=== PATIENT | female | born 1960 | race Caucasian/White ===

== ENCOUNTER 2016-08-24 14:23 | Emergency (ER) | payer OTHER ==
--- NOTE | 2016-08-24 14:26 | UC ---
Ear Complaint HPI - HPI Summary HPI Summary: 55 year old female presents with complains of ear bilateral ear pain - History of Current Complaint Stated Complaint: EAR PAIN Time Seen by Provider: 08/24/16 14:24 Hx Last Menstrual Period: 08/18/13 - Allergies/Home Medications Allergies/Adverse Reactions: Allergies Allergy/AdvReac Type Severity Reaction Status Date / Time No Known Allergies Allergy Verified 08/24/16 14:35 PMH/Surg Hx/FS Hx/Imm Hx - Surgical History Surgical History: Yes Surgery Procedure, Year, and Place: C-sect x2. tubal - Social History Alcohol Use: None Substance Use Type: None Smoking Status (MU): Never Smoked Tobacco Review of Systems Constitutional: Negative Skin: Negative Eyes: Negative ENT: Ear Ache Respiratory: Negative Cardiovascular: Negative Gastrointestinal: Negative Genitourinary: Negative Motor: Negative Neurovascular: Negative Musculoskeletal: Negative Neurological: Negative Psychological: Negative All Other Systems Reviewed And Are Negative: Yes Physical Exam Triage Information Reviewed: Yes Eye Exam: Normal ENT: Positive: Other: - left external ear canal erythema/tender Dental Exam: Normal Neck exam: Normal Neck: Positive: 1 Respiratory Exam: Normal Cardiovascular Exam: Normal Abdominal Exam: Normal Musculoskeletal Exam: Normal Neurological Exam: Normal Psychological Exam: Normal Skin Exam: Normal Ear Complaint Course/Dx - Differential Dx/Diagnosis Provider Diagnoses: bilateral earache. bilateral cerumen impaction Discharge - Discharge Plan Condition: Stable Disposition: HOME Prescriptions: Amoxicillin PO (*) [Amoxicillin 500 MG CAP*] 500 mg PO TID #30 cap Neomyc/Polym/HC 1% OTIC SUSP* [Cortisporin Otic Susp 1%*] 4 drop LEFT EAR QID # 1 btl Patient Education Materials: Earache (ED) Referrals: Mateusz Manuel MD [Medical Doctor] - If Needed
[2016-08-24 14:35] VITALS: BP 128/71
== END 2016-08-24 14:42 | disposition home or self-care (01) ==
LOC: UCCORT 14:23
DX: H92.03 Otalgia, bilateral (principal); H61.23 Impacted cerumen, bilateral
CPT/HCPCS: 99212; G0463

== ENCOUNTER 2016-08-29 15:59 | Emergency (ER) | payer OTHER ==
[2016-08-29 16:08] VITALS: BP 152/74
--- NOTE | 2016-08-29 16:17 | UC ---
Ear Complaint HPI - HPI Summary HPI Summary: Pt presents with c/o left ear ache X 5 days. Pt reports that she was seen on for c/o of left ear discomfort and given antibiotic ear drops and amoxicillin to take PO Pt reports that pain has improved but not resolved. - History of Current Complaint Chief Complaint: UCEar Stated Complaint: LEFT EAR COMPLAINT Time Seen by Provider: 08/29/16 16:13 Hx Obtained From: Patient Hx Last Menstrual Period: 08/18/13 ?: No Onset/Duration: Gradual Onset, Lasting Days Severity Initially: Mild Severity Currently: Mild Alleviating Factors: Other (Noted In Comments) - prescript ear drops Associated Signs/Symptoms: Positive: Foreign Body Sensation - Allergies/Home Medications Allergies/Adverse Reactions: Allergies Allergy/AdvReac Type Severity Reaction Status Date / Time No Known Allergies Allergy Verified 08/29/16 16:08 PMH/Surg Hx/FS Hx/Imm Hx Previously Healthy: Yes - Surgical History Surgical History: Yes Surgery Procedure, Year, and Place: C-sect x2. tubal - Family History Known Family History: Positive: Cardiac Disease - Social History Lives: With Family Alcohol Use: None Substance Use Type: None Smoking Status (MU): Never Smoked Tobacco Have You Smoked in the Last Year: No Review of Systems Constitutional: Negative Skin: Negative Eyes: Negative ENT: Ear Ache - left Respiratory: Negative Cardiovascular: Negative Gastrointestinal: Negative Genitourinary: Negative Motor: Negative Neurovascular: Negative Musculoskeletal: Negative Neurological: Negative Psychological: Negative All Other Systems Reviewed And Are Negative: Yes Physical Exam Triage Information Reviewed: Yes Appearance: Well-Appearing Vital Signs: Initial Vital Signs Temp 98.4 F 08/29/16 16:04 Pulse 70 08/29/16 16:04 Resp 17 08/29/16 16:04 BP 152/74 08/29/16 16:04 Pulse Ox 98 08/29/16 16:04 Vital Signs Reviewed: Yes Eye Exam: Normal ENT Exam: Normal ENT: Positive: Other: - small amount of cerumen in left ear. Neck exam: Normal Respiratory Exam: Normal Cardiovascular Exam: Normal Musculoskeletal Exam: Normal Neurological Exam: Normal Psychological Exam: Normal Skin Exam: Normal Ear Complaint Course/Dx - Differential Dx/Diagnosis Differential Diagnosis/HQI/PQRI: Cerumen Impaction, Otitis Media, Other - ear ache Provider Diagnoses: ear ache left ear Discharge - Discharge Plan Condition: Stable Disposition: HOME Patient Education Materials: Earache (ED) Referrals: Vicky King MD [Primary Care Provider] -
== END 2016-08-29 16:24 | disposition home or self-care (01) ==
LOC: UCCORT 15:59
DX: H92.02 Otalgia, left ear (principal)
CPT/HCPCS: 99211; G0463